=== PATIENT | female | born 1955 | race Caucasian/White ===

== ENCOUNTER → 2019-09-11 09:30 | Outpatient (BNVA) | payer MEDICARE, SELFPAY | PROVIDERS: PCP Nurse Practitioner Family; Referring Provider Nurse Practitioner Family; Visit Provider Anesthesiology Pain Medicine | DX: M54.9 Dorsalgia, unspecified (principal); M15.9 Polyosteoarthritis, unspecified; M15.0 Primary generalized (osteo)arthritis; E11.9 Type 2 diabetes mellitus without complications; I10 Essential (primary) hypertension; Z79.891 Long term (current) use of opiate analgesic | CPT/HCPCS: 99205 ==

== ENCOUNTER → 2019-09-23 09:31 | Outpatient (BNVA) | payer MEDICARE, SELFPAY | PROVIDERS: PCP Nurse Practitioner Family; Visit Provider Nurse Practitioner Family | DX: E11.9 Type 2 diabetes mellitus without complications (principal); E03.9 Hypothyroidism, unspecified | CPT/HCPCS: 80053; 80061; 83036; 84443 ==

== ENCOUNTER → 2019-11-04 10:53 | Outpatient (BNVA) | payer MEDICARE, SELFPAY | PROVIDERS: PCP Nurse Practitioner Family; Visit Provider Anesthesiology Pain Medicine | DX: M54.41 Lumbago with sciatica, right side (principal); M54.42 Lumbago with sciatica, left side; M54.9 Dorsalgia, unspecified; M25.572 Pain in left ankle and joints of left foot; M54.2 Cervicalgia; M15.0 Primary generalized (osteo)arthritis; M15.9 Polyosteoarthritis, unspecified; E11.9 Type 2 diabetes mellitus without complications; I10 Essential (primary) hypertension; Z79.891 Long term (current) use of opiate analgesic | CPT/HCPCS: 99213; 99214 ==

== ENCOUNTER → 2019-11-20 13:44 | Outpatient (BNVA) | payer MEDICARE, SELFPAY | PROVIDERS: PCP Nurse Practitioner Family; Visit Provider Nurse Practitioner Family | DX: L03.90 Cellulitis, unspecified (principal); L02.419 Cutaneous abscess of limb, unspecified | CPT/HCPCS: 87070; 87077; 87186 ==

== ENCOUNTER → 2019-12-05 12:39 | Outpatient (BNVA) | payer MEDICARE, SELFPAY | PROVIDERS: PCP Nurse Practitioner Family; Visit Provider Anesthesiology Pain Medicine | DX: M25.551 Pain in right hip (principal); M25.572 Pain in left ankle and joints of left foot; M15.0 Primary generalized (osteo)arthritis; M15.9 Polyosteoarthritis, unspecified; M54.9 Dorsalgia, unspecified; M54.2 Cervicalgia; E11.9 Type 2 diabetes mellitus without complications; I10 Essential (primary) hypertension; Z79.891 Long term (current) use of opiate analgesic | CPT/HCPCS: 99214 ==

== ENCOUNTER → 2023-07-04 13:40 | Outpatient (BNVA) | payer MEDICARE, SELFPAY | PROVIDERS: PCP Nurse Practitioner Family; Visit Provider Dermatology | DX: L40.0 Psoriasis vulgaris (principal) | CPT/HCPCS: 99204 ==

== ENCOUNTER → 2023-09-03 13:13 | Outpatient (BNVA) | payer MEDICARE, SELFPAY | PROVIDERS: PCP Nurse Practitioner Family; Visit Provider Dermatology | DX: L40.0 Psoriasis vulgaris (principal); L82.1 Other seborrheic keratosis | CPT/HCPCS: 99214 ==

== ENCOUNTER → 2023-12-04 13:01 | Outpatient (BNVA) | payer MEDICARE, SELFPAY | PROVIDERS: PCP Nurse Practitioner Family; Visit Provider Dermatology | DX: L40.0 Psoriasis vulgaris (principal) | CPT/HCPCS: 99214 ==

== ENCOUNTER → 2024-04-30 14:21 | Outpatient (BNVA) | payer MEDICARE, SELFPAY | PROVIDERS: PCP Nurse Practitioner Family; Visit Provider Nurse Practitioner Family | DX: L40.0 Psoriasis vulgaris (principal); L21.8 Other seborrheic dermatitis | CPT/HCPCS: 99214 ==

== ENCOUNTER → 2024-10-28 10:24 | Outpatient (BNVA) | payer MEDICARE, SELFPAY | PROVIDERS: PCP Nurse Practitioner Family; Visit Provider Nurse Practitioner Family | DX: L40.0 Psoriasis vulgaris (principal); Z79.899 Other long term (current) drug therapy; L21.8 Other seborrheic dermatitis; L82.1 Other seborrheic keratosis | CPT/HCPCS: 99214 ==